=== PATIENT | male | born 1980 | race Caucasian/White ===

== ENCOUNTER 2016-09-12 18:13 | Emergency (ER) | payer MEDICAID ==
[~2016-09-12] VITALS: Ht 180.3 cm; Wt 118.7 kg
[~2016-09-12 18:13] MED LIST: ALBU0.63 NEB
[2016-09-12 18:15] VITALS: BP 143/89
[2016-09-12 18:59] LABS: BLOOD UREA NITROGEN 13 mg/dL (7-18)
== END 2016-09-12 20:38 | disposition home or self-care (01) ==
LOC: ED 19:38
DX: L03.116 Cellulitis of left lower limb (principal)
CPT/HCPCS: 36415; 80048; 85025; 99285